=== PATIENT | female | born 1990 | race American Indian/Alaskan Native ===

== ENCOUNTER 2016-08-24 18:46 | Outpatient (CLI) | payer MEDICAID ==
[2016-08-24 19:12] VITALS: BP 119/63
[2016-08-24] MEDS ORDERED: LACTATED RINGERS 500 ML IV ONE (19:20)
[2016-08-24 19:52] LABS: Bacteria,Urine 1+ /HPF (Negative); Bilirubin,Urine NEG (Negative); Blood,Urine NEG (Negative); Ketones,Urine NEG (Negative); Leukocyte Esterase,Urine NEG (Negative); Mucus,Urine 1+ /HPF; Nitrite,Urine NEG (Negative); Protein,Urine <15 mg/dL mg/dL (Negative)
[2016-08-24 19:53] LABS: WBC,Urine < 1.0 /HPF (0.0-6.0)
[2016-08-24] MEDS ORDERED: LACTATED RINGERS 1,000 ML ONE (22:15)
[2016-08-24] MEDS: BRETHINE SUB-Q PRN ×2 (22:30→22:49)
[2016-08-24] MEDS ORDERED: LACTATED RINGERS 1,000 ML IV SCH (23:00)
== END 2016-08-24 23:45 | disposition home or self-care (01) ==
LOC: TRG 18:46 → LD 19:09 → TRG 23:45
PROVIDERS: ATTEND Obstetrics & Gynecology
DX: O77.9 Labor and delivery complicated by fetal stress, unspecified (principal); O47.9 False labor, unspecified; Z3A.00 Weeks of gestation of pregnancy not specified
CPT/HCPCS: 59025; 81001; 96360; 96361; 96372; J3105; J7120

== ENCOUNTER 2016-08-25 17:27 | Outpatient (CLI) | payer MEDICAID ==
[2016-08-25] MEDS ORDERED: LACTATED RINGERS 500 ML IV ONE (20:00)
[2016-08-25 20:11] VITALS: BP 106/62
--- NOTE | 2016-08-26 11:27 | Ultrasound Report ---
Limited OB ultrasound: There is a sal intrauterine in cephalic position with a heart rate 152 beats per minute. The ZELALEM is 21.7 cm. The estimated gestational age is 29 weeks 2 days. No other information. BIOPHYSICAL PROFILE: 2 - breathing movements 2 - movements 2 - posture and tone 2 - Qualitative amniotic fluid volume 8 - TOTAL SCORE OF POSSIBLE 8 Heart Rate (bpm) 152
== END 2016-08-25 20:20 | disposition home or self-care (01) ==
LOC: TRG 17:27
PROVIDERS: ATTEND Obstetrics & Gynecology
DX: O47.03 False labor before 37 completed weeks of gestation, third trimester (principal); Z3A.29 29 weeks gestation of pregnancy
CPT/HCPCS: 76815; 76819

== ENCOUNTER 2016-09-01 01:57 | Outpatient (CLI) | payer MEDICAID ==
[2016-09-01] MEDS ORDERED: LACTATED RINGERS 500 ML IV ONE (02:18)
[2016-09-01 02:59] VITALS: BP 112/66
[2016-09-01] MEDS: BRETHINE SUB-Q PRN ×3 (03:52→04:46)
[2016-09-01 04:15] LABS: Bilirubin,Urine NEG (Negative); Blood,Urine SM (Negative); Ketones,Urine NEG (Negative); Leukocyte Esterase,Urine SM (Negative); Mucus,Urine 1+ /HPF; Nitrite,Urine NEG (Negative); Protein,Urine <15 mg/dL mg/dL (Negative)
[2016-09-01] MEDS ORDERED: LACTATED RINGERS 1,000 ML ONE (05:04)
== END 2016-09-01 06:35 | disposition home or self-care (01) ==
LOC: TRG 01:57
PROVIDERS: ATTEND Obstetrics & Gynecology
DX: O26.893 Other specified pregnancy related conditions, third trimester (principal); Z3A.30 30 weeks gestation of pregnancy; O77.9 Labor and delivery complicated by fetal stress, unspecified
CPT/HCPCS: 59025; 81001; 96360; 96361; 96372; J3105; J7120

== ENCOUNTER 2016-09-09 17:42 | Outpatient (CLI) | payer MEDICAID ==
[2016-09-09] MEDS ORDERED: CELESTONE SOLUSPAN IM ONE (18:31)
[2016-09-09 19:26] VITALS: BP 120/60
== END 2016-09-09 19:26 | disposition home or self-care (01) ==
LOC: TRG 17:42
PROVIDERS: ATTEND Obstetrics & Gynecology
DX: O47.9 False labor, unspecified (principal); Z3A.00 Weeks of gestation of pregnancy not specified
CPT/HCPCS: 96372; J0702

== ENCOUNTER 2016-09-13 12:06 | Outpatient (CLI) | payer MEDICAID ==
[2016-09-13] MEDS ORDERED: LACTATED RINGERS 500 ML IV ONE (12:20)
[2016-09-13 12:34] VITALS: BP 112/63
[2016-09-13 13:18] LABS: Mucus,Urine FEW /HPF
[2016-09-13 13:19] LABS: Bilirubin,Urine NEG (Negative); Blood,Urine NEG (Negative); Ketones,Urine NEG (Negative); Leukocyte Esterase,Urine NEG (Negative); Nitrite,Urine NEG (Negative); Protein,Urine <15 mg/dL mg/dL (Negative)
== END 2016-09-13 13:49 | disposition home or self-care (01) ==
LOC: TRG 12:06
PROVIDERS: ATTEND Obstetrics & Gynecology
DX: O77.9 Labor and delivery complicated by fetal stress, unspecified (principal); O47.03 False labor before 37 completed weeks of gestation, third trimester; Z3A.32 32 weeks gestation of pregnancy
CPT/HCPCS: 59025; 81001

== ENCOUNTER 2016-10-11 23:47 | Outpatient (CLI) | payer MEDICAID ==
[2016-10-12 00:04] VITALS: BP 110/66
[2016-10-12] MEDS ORDERED: LACTATED RINGERS 1,000 ML IV ONE (00:10)
[2016-10-12 00:37] LABS: Bilirubin,Urine NEG (Negative); Blood,Urine NEG (Negative); Ketones,Urine NEG (Negative); Leukocyte Esterase,Urine NEG (Negative); Mucus,Urine 2+ /HPF; Nitrite,Urine NEG (Negative); Protein,Urine <15 mg/dL mg/dL (Negative)
[2016-10-12] MEDS ORDERED: LACTATED RINGERS 1,000 ML ONE (00:46)
--- NOTE | 2016-10-12 07:35 | Ultrasound Report ---
OB LIMITED Technique: Transabdominal ultrasound with Doppler interrogation. Gestation: Single Amniotic Fluid: Normal ZELALEM = 13.4 cm Heart Rate: 1.5 BPM
--- NOTE | 2016-10-12 07:35 | Ultrasound Report ---
BIOPHYSICAL PROFILE: Technique: Transabdominal ultrasound with Doppler interrogation. 2 - breathing movements 2 - movements 2 - posture and tone 2 - Qualitative amniotic fluid volume 8 - TOTAL SCORE OF POSSIBLE 8 Heart Rate (bpm) 155
== END 2016-10-12 02:30 | disposition home or self-care (01) ==
LOC: TRG 23:47
PROVIDERS: ATTEND Obstetrics & Gynecology
DX: O26.893 Other specified pregnancy related conditions, third trimester (principal); O22.43 Hemorrhoids in pregnancy, third trimester; O62.9 Abnormality of forces of labor, unspecified; R10.30 Lower abdominal pain, unspecified; M54.9 Dorsalgia, unspecified; Z3A.36 36 weeks gestation of pregnancy
CPT/HCPCS: 76815; 76819; 81001; 96360; J7120

== ENCOUNTER 2016-10-14 20:11 | Outpatient (CLI) | payer MEDICAID ==
[2016-10-14 20:30] VITALS: BP 119/64
== END 2016-10-14 21:30 | disposition home or self-care (01) ==
LOC: TRG 20:11
PROVIDERS: ATTEND Obstetrics & Gynecology
DX: O47.03 False labor before 37 completed weeks of gestation, third trimester (principal); Z3A.36 36 weeks gestation of pregnancy
CPT/HCPCS: 59025